=== PATIENT | male | born 1995 | race African-American/Black ===

== ENCOUNTER 2018-12-06 22:45 | Emergency (ER) | payer SELFPAY ==
[2018-12-06] MEDS ORDERED: Ibuprofen 600 MG TAB ONE (23:09)
--- NOTE | 2018-12-06 23:23 | RAD ---
XR Ankle Rt 3 View STANDARD HISTORY: Ankle injury COMPARISON: None. FINDINGS: There are no signs of fracture, dislocation or joint effusion. Minimal arthritic changes of the ankle joint are seen also talonavicular degenerative change. IMPRESSION: No acute injury.
== END 2018-12-06 23:40 | disposition home or self-care (01) ==
LOC: MADERS 22:45
DX: S93.401A Sprain of unspecified ligament of right ankle, initial encounter (principal); E66.9 Obesity, unspecified; X50.1XXA Overexertion from prolonged static or awkward postures, initial encounter

== ENCOUNTER 2020-03-08 13:22 | Emergency (ER) | payer SELFPAY ==
[2020-03-08] MEDS ORDERED: Lidocaine 1% w/Epinephrine 1:100K 20 ML VIAL ONE (13:41)
== END 2020-03-08 14:16 | disposition home or self-care (01) ==
LOC: MADERS 13:22
DX: L05.91 Pilonidal cyst without abscess (principal); E66.9 Obesity, unspecified
CPT/HCPCS: 99282

== ENCOUNTER 2020-03-09 19:24 | Emergency (ER) | payer SELFPAY | END 2020-03-09 20:06 | disposition home or self-care (01) | LOC: MADERS 19:24 | DX: L02.31 Cutaneous abscess of buttock (principal) | CPT/HCPCS: 99283 ==